=== PATIENT | male | born 1955 | race Two or more races ===

== ENCOUNTER → 2024-10-29 | Outpatient (CLI) | payer OTHER, SELFPAY ==
[2024-10-29 09:33] LABS: Basophils # (Auto) 0.1 Thou/mm3 (0.0-0.2); Basophils % (Auto) 1 % (0-2.5); Eosinophils # (Auto) 0.3 Thou/mm3 (0.0-0.5); Eosinophils % (Auto) 5 % (0-10); Hematocrit 35.4 % (41.0-53.0); Hemoglobin 11.6 g/dL (13.5-16.0); Immature Granulocytes % (Auto) 0 % (0-0); Immature Granulocytes Auto 0.01 Thou/mm3 (0.00-0.00); Lymphocytes # (Auto) 1.9 Thou/mm3 (1.0-4.8); Lymphocytes % (Auto) 31 % (10-50); Mean Corpuscular HGB Conc 32.8 g/dl (31.0-37.0); Mean Corpuscular Hemoglobin 29.4 pg (25.0-35.0); Mean Corpuscular Volume 90 fL (80-100); Monocytes # (Auto) 0.5 Thou/mm3 (0.0-0.8); Monocytes % (Auto) 8 % (0-12); Neutrophils # (Auto) 3.4 Thou/mm3 (1.8-7.7); Neutrophils % (Auto) 56 % (37-80); Nucleated Red Blood Cell % 0 /100 WBC (0); Platelet Count 297 Thou/mm3 (140-440); RDW Standard Deviation 49.5 fL (35.1-43.9); Red Blood Count 3.94 Miln/mm3 (4.50-5.90); White Blood Count 6.1 Thou/mm3 (3.8-10.6)
[2024-10-29 09:46] LABS: Glucose Estimated Average 108 mg/dL (80-131); Hemoglobin A1C 5.4 % Hgb (4.8-6.0)
[2024-10-29 09:54] LABS: Creatinine MALB Rnd Ur 157 mg/dL (30-125); Microalbumin Creat Ratio 38 mg/gCrea (<30); Microalbumin, Random Urine 60 mg/L (0-300)
[2024-10-29 10:10] LABS: Alanine Aminotransferase 15 U/L (10-49); Albumin, Serum 4.1 gm/dL (3.4-4.8); Alkaline Phosphatase 108 U/L (46-116); Anion Gap 7 (7-16); Aspartate Amino Transferase 17 U/L (0-34); BUN/Creatinine Ratio 31 Ratio (12-20); Bilirubin,Total 0.8 mg/dL (0.3-1.2); Blood Urea Nitrogen 31 mg/dL (9-23); Calcium 9.1 mg/dL (8.3-10.6); Calcium (Corrected) 9.1 mg/dL (8.5-10.1); Carbon Dioxide 28.1 mMol/L (20.0-31.0); Cardiac Risk Estimate 3.1 RATIO (4.0-6.7); Chloride 108 mMol/L (98-107); Cholesterol 126 mg/dL (132-200); Globulin 2.1 gm/dL (2.3-3.5); Glucose 70 mg/dL (74-106); HDL Cholesterol 41 mg/dL (40-60); LDL Cholesterol,Calculated 68 mg/dL (0-130); Osmolality,Calculated 289 (275-295); Potassium 4.5 mMol/L (3.4-5.1); Sodium 143 mMol/L (136-145); Total Protein 6.2 gm/dL (5.7-8.2); Triglycerides 85 mg/dL (30-150); eGFR > 60 See Note
== END | disposition home or self-care (01) ==
LOC: COPL 08:37
PROVIDERS: PCP Internal Medicine; Referring Provider Internal Medicine; Visit Provider Internal Medicine
DX: E11.65 Type 2 diabetes mellitus with hyperglycemia (principal); I10 Essential (primary) hypertension; E78.5 Hyperlipidemia, unspecified
CPT/HCPCS: 36415; 80053; 80061; 82043; 82570; 83036; 85025

== ENCOUNTER → 2024-11-24 | Outpatient (CLI) | payer OTHER, SELFPAY ==
--- NOTE | 2024-11-24 09:16 | XR_ITS ---
Examination: Left knee 4 views TECHNIQUE: AP oblique lateral axial left knee 4 views Exam date and time: November 24, 2024 at 0943 hours INDICATIONS: Left knee pain several years. FINDINGS: Prominent osteopenia Advanced tricompartment osteoarthritis No patellar dislocation No fracture IMPRESSION: Advanced tricompartment osteoarthritis
== END | disposition home or self-care (01) ==
PROVIDERS: PCP Internal Medicine; Referring Provider Internal Medicine; Visit Provider Internal Medicine
DX: M17.12 Unilateral primary osteoarthritis, left knee (principal)
CPT/HCPCS: 73564

== ENCOUNTER 2024-12-19 10:55 | Day surgery (SDC) | payer OTHER, SELFPAY ==
[2024-12-18 13:32] VITALS: BMI 45.1
[2024-12-19] VITALS (8 sets, daily range): BP systolic 148–179; BP diastolic 70–97; PULSE 64–77; RESP 12–18; TEMP 36.3–36.7; O2SAT 95–100; BMI 44.6
[2024-12-19] MEDS: SODIUM CHLORIDE 0.9% 500 ML 500 ML 20 ML IV (12:48)
[2024-12-19] MEDS: fentaNYL CIT INJ 50 mCg/ML AMP 2ML (ASD USE ONLY) IV (12:50)
[2024-12-19] MEDS: DiphenhydrAMINE INJ 50 MG/ML VIAL 25 MG IV (12:50)
[2024-12-19] MEDS: MIDAZOLAM INJ 1 MG/ML VIAL 2 ML (ASD USE ONLY) 2 MG IV (12:50)
== END 2024-12-19 13:40 | disposition home or self-care (01) ==
PROVIDERS: PCP Internal Medicine; Referring Provider Specialist; Visit Provider Specialist
PROC: (CPT 43239; principal; 2024-12-19 09:45)
DX: K29.01 Acute gastritis with bleeding (principal); K29.50 Unspecified chronic gastritis without bleeding; B96.81 Helicobacter pylori [H. pylori] as the cause of diseases classified elsewhere; D62 Acute posthemorrhagic anemia; K22.10 Ulcer of esophagus without bleeding; E11.9 Type 2 diabetes mellitus without complications; I10 Essential (primary) hypertension; E78.5 Hyperlipidemia, unspecified; Z87.19 Personal history of other diseases of the digestive system; Z79.84 Long term (current) use of oral hypoglycemic drugs; Z79.4 Long term (current) use of insulin; Z79.899 Other long term (current) drug therapy
CPT/HCPCS: 43239; A4649; J1200; J2250; J3010; J7040

== ENCOUNTER → 2025-01-30 | Outpatient (CLI) | payer OTHER, SELFPAY ==
[2025-01-30 08:45] LABS: Basophils # (Auto) 0.1 Thou/mm3 (0.0-0.2); Basophils % (Auto) 1 % (0-2.5); Eosinophils # (Auto) 0.3 Thou/mm3 (0.0-0.5); Eosinophils % (Auto) 5 % (0-10); Hematocrit 37.5 % (41.0-53.0); Hemoglobin 12.1 g/dL (13.5-16.0); Immature Granulocytes % (Auto) 0 % (0-0); Immature Granulocytes Auto 0.03 Thou/mm3 (0.00-0.00); Lymphocytes # (Auto) 2.1 Thou/mm3 (1.0-4.8); Lymphocytes % (Auto) 29 % (10-50); Mean Corpuscular HGB Conc 32.3 g/dl (31.0-37.0); Mean Corpuscular Hemoglobin 29.4 pg (25.0-35.0); Mean Corpuscular Volume 91 fL (80-100); Monocytes # (Auto) 0.6 Thou/mm3 (0.0-0.8); Monocytes % (Auto) 8 % (0-12); Neutrophils % (Auto) 57 % (37-80); Nucleated Red Blood Cell % 0 /100 WBC (0); Platelet Count 296 Thou/mm3 (140-440); RDW Standard Deviation 49.7 fL (35.1-43.9); Red Blood Count 4.11 Miln/mm3 (4.50-5.90); White Blood Count 7.1 Thou/mm3 (3.8-10.6)
[2025-01-30 09:05] LABS: Folate 6.24 ng/mL (>5.38); Vitamin B12 485 pg/mL (211-911)
[2025-01-30 09:08] LABS: Ferritin 33 ng/mL (10.5-307.3); Iron 55 mcg/dL (65-175); Percent Iron Saturation 16 % (20-55); Total Iron Binding Capacity 338 mcg/dL (250-425); Unsaturated Iron Binding 283 (225-295)
== END | disposition home or self-care (01) ==
LOC: COPL 08:05
PROVIDERS: PCP Internal Medicine; Referring Provider Internal Medicine; Visit Provider Internal Medicine
DX: D64.9 Anemia, unspecified (principal)
CPT/HCPCS: 36415; 82607; 82728; 82746; 83540; 83550; 85025

== ENCOUNTER 2025-03-10 03:04 | Emergency (ER) | payer OTHER, SELFPAY ==
[2025-03-10 03:08] VITALS: BMI 44.1
[2025-03-10 03:09] VITALS: BP 153/71; PULSE 90; RESP 19; TEMP 36.6; O2SAT 99
[2025-03-10 03:16] VITALS: BP 175/88; PULSE 80; O2SAT 96
[2025-03-10 03:18] VITALS: PULSE 90; RESP 19; O2SAT 100
[2025-03-10 04:00] LABS: Basophils # (Auto) 0.1 Thou/mm3 (0.0-0.2); Basophils % (Auto) 1 % (0-2.5); Eosinophils # (Auto) 0.1 Thou/mm3 (0.0-0.5); Eosinophils % (Auto) 1 % (0-10); Hematocrit 34.0 % (41.0-53.0); Hemoglobin 11.7 g/dL (13.5-16.0); Immature Granulocytes Auto 0.01 Thou/mm3 (0.00-0.00); Lymphocytes # (Auto) 1.7 Thou/mm3 (1.0-4.8); Lymphocytes % (Auto) 22 % (10-50); Mean Corpuscular HGB Conc 34.4 g/dl (31.0-37.0); Mean Corpuscular Hemoglobin 29.8 pg (25.0-35.0); Mean Corpuscular Volume 87 fL (80-100); Monocytes # (Auto) 0.6 Thou/mm3 (0.0-0.8); Monocytes % (Auto) 8 % (0-12); Neutrophils # (Auto) 5.3 Thou/mm3 (1.8-7.7); Neutrophils % (Auto) 68 % (37-80); Nucleated Red Blood Cell # 0.00 Thou/mm3 (0.00-0.00); Nucleated Red Blood Cell % 0 /100 WBC (0); Platelet Count 231 Thou/mm3 (140-440); RDW Standard Deviation 48.4 fL (35.1-43.9); Red Blood Count 3.92 Miln/mm3 (4.50-5.90); White Blood Count 7.9 Thou/mm3 (3.8-10.6)
--- NOTE | 2025-03-10 04:00 | PD.EDAMS ---
Altered Mental Status RME/HPI General Chief Complaint: Altered Mental Status Stated Complaint: AMS, LOW BS Time Seen by Provider: 03/10/25 03:06 Arrival date/time: 03/10/25 03:04 RME / HPI RME / HPI narrative: DR. HARO MAIN ED EVALUATION: 69 y/o male with Hx of Type II DM BIBA presents to ED c/o AMS s/p low blood sugar x just [employer]. Per EMS, upon arrival on scene, patient had snoring respirations with GCS 10. Blood sugar read 37 mg/dL. D10 administered via IV. Recheck BS read 117 with improved GCS of 15. Patient took his insulin despite not eating enough at dinner. Patient llastly recalls going to be at approximately 10 PM. Related Data Home Medications ?Medication ?Instructions ?Recorded ?Confirmed enalapril maleate 20 mg tablet 20 mg PO DAILY 11/16/23 12/19/24 gabapentin 300 mg capsule 300 mg PO QDAY 11/16/23 12/19/24 glipizide 10 mg tablet 10 mg PO QDAY 11/16/23 12/19/24 hydrochlorothiazide 25 mg tablet 25 mg PO QAM 11/16/23 12/19/24 insulin glargine 100 unit/mL (3 25 unit subcut QPM 11/16/23 12/19/24 mL) subcutaneous pen (Lantus Solostar U-100 Insulin) metformin 1,000 mg tablet 1,000 mg PO BID 11/16/23 12/19/24 pioglitazone 45 mg tablet 45 mg PO QDAY 11/16/23 12/19/24 pravastatin 10 mg tablet 10 mg PO HS 11/16/23 12/19/24 amlodipine 10 mg tablet 10 mg PO QDAY 05/26/24 12/19/24 Allergies Allergy/AdvReac Type Severity Reaction Status Date / Time No Known Allergies Allergy Verified 12/19/24 11:19 Review of Systems Review of Systems Systems Reviewed: All systems reviewed, normal except as documented Past Medical History Past Medical History NEUROLOGIC: Positive Neurological Disorders and Peripheral Neuropathy CARDIAC: Positive Cardiac Disorders, Hypercholesterolemia and Hypertension GASTROINTESTINAL: Positive Gastrointestinal Disorders, Diverticulosis, Hemorrhoids and Obesity MUSCULOSKELETAL: Positive Musculoskeletal Disorders and Arthritis (knee, back) ENDOCRINE: Positive Endocrine Disorders and Diabetes Mellitus Type 2 OTHER HISTORY: Positive Shingles and Chicken Pox Family History FAMILY HISTORY: Positive Family Gastrointestinal Problems Social History SMOKING STATUS: Former smoker ED Exam Narrative Physical exam: GENERAL APPEARANCE: alert and oriented x 4, well-developed, well-nourished, no acute distress VITALS: All vitals were reviewed and the pulse ox is 99% on room air, which is normal according to my interpretation. HEENT: Normocephalic, atraumatic; pupils equal, round, reactive to light; EOMI; mucous membranes pink, moist; oropharynx clear NECK: Supple LUNGS: CTABL; no wheezes, no rales, no rhonchi HEART: Regular rate, regular rhythm; normal S1, S2; no murmurs ABDOMEN: non distended; normal BS; soft, no tenderness, no guarding, no rebound; no masses, no organomegaly, no hernia BACK: no CVA tenderness EXTREMITIES: atraumatic; no edema NEUROLOGIC: awake; alert and oriented x4; cranial nerves II-XII grossly intact; no focal sensory or motor deficits PSYCHIATRIC: appropriate mood and affect SKIN: warm, dry, normal color; no rashes Course Quality Measures none Orders Category Date Time Status CBC Stat Lab 03/10/25 03:45 Completed CMP [Comprehensive Metabolic Panel] Stat Lab 03/10/25 03:45 Completed Vital Signs Vital signs: Vital Signs Temperature 97.8 F 03/10/25 03:09 Pulse Rate 90 03/10/25 03:09 Respiratory Rate 19 03/10/25 03:09 Blood Pressure 153/71 H 03/10/25 03:09 Pulse Oximetry (%) 99 03/10/25 03:09 Oxygen Delivery Method Room Air 03/10/25 03:09 Altered Mental Status MDM Narrative MDM Narrative:: Scribe Attestation: Kaci Cabral am scribing for and in the presence of Dr. Haro. Provider Notation: Although this document has been carefully reviewed, there may still be some phonetic and other typographical errors.? These errors are purely grammatical due to imperfections in the software program and should not be construed in any way to? compromise the substance of the patient's medical care during this visit. Patient data External records reviewed:: [facility] previous records (Reviewed prior ED records from 05/11/23. Patient was seen for Acute pain of left hip.) and EMS form Clinical information provided by:: EMS and spouse () Social determinants that could affect healthcare access:: none Patient has the following chronic illnesses:: Peripheral Neuropathy, Hypercholesterolemia, Hypertension, Diverticulosis, Hemorrhoids, Obesity, Arthritis, Diabetes Mellitus Type 2 How is presenting disease/condition affected by chronic disease/condition?: exacerbated by Evaluation data The following diagnostics were reviewed and interpreted by me:: lab results Lab and/or radiology exams considered but not ordered:: None Interpretation Summary: LABS Blood Glucose: 100 mg/dL. Medications / Prescriptions Medications or Prescriptions considered but not ordered:: None Medication administrations:: See above Consultations Consultation(s) initiated? (list below): No Diagnosis Differential diagnosis altered mental status: alcoholic intoxication, altered mental status, hypoglycemia, hyponatremia, subarachnoid hemorrhage and sepsis Most likely diagnosis given after review of the tests above:: Hypoglycemia Admission Indicated Admission indicated?: not indicated Explain why admission is indicated or not indicated:: Patient does not meet admission criteria. Admission Request Was there a request for admission?: No Disposition Plan Disposition Plan: Discharge Discharge Attestation Discharge Attestation: The patient and all family members were given an opportunity to ask questions and understood the discharge instructions. Discharge instructions specifically effects, indications for sooner follow up or return to the emergency department, and the expected course of current diagnosis. Patient condition: Stable Discharge Plan Plan Patient Disposition: HOME (Self Care) Prescriptions/Referrals Prescriptions/Med Rec: No Action enalapril maleate 20 mg Tablet 20 mg PO DAILY glipizide 10 mg Tablet 10 mg PO QDAY pioglitazone 45 mg Tablet 45 mg PO QDAY pravastatin 10 mg Tablet 10 mg PO HS metformin 1,000 mg Tablet 1,000 mg PO BID gabapentin 300 mg Capsule 300 mg PO QDAY hydrochlorothiazide 25 mg Tablet 25 mg PO QAM insulin glargine [Lantus Solostar U-100 Insulin] 100 unit/mL (3 mL) Insulin Pen 25 unit SUBCUT QPM amlodipine 10 mg tablet 10 mg PO QDAY Referrals: Sole You MD [Primary Care Provider] - In 1 week Problem List Clinical Impression: Hypoglycemia Patient/Caregiver Discharge Instructions Education Materials: Glucose Check Steps, ED Hypoglycemia Oral Diabetic ... Print Language: Italian Stand Alone Forms: [employer]a Award Info., Patient Portal Info Letter
[2025-03-10 04:17] LABS: Alanine Aminotransferase 17 U/L (10-49); Albumin, Serum 4.1 gm/dL (3.4-4.8); Albumin/Globulin Ratio 1.6 (1.2-2.2); Alkaline Phosphatase 91 U/L (46-116); Anion Gap 10 (7-16); Aspartate Amino Transferase 36 U/L (0-34); BUN/Creatinine Ratio 18 Ratio (12-20); Bilirubin,Total 0.8 mg/dL (0.3-1.2); Blood Urea Nitrogen 20 mg/dL (9-23); Calcium 8.8 mg/dL (8.3-10.6); Calcium (Corrected) 8.8 mg/dL (8.5-10.1); Carbon Dioxide 20.1 mMol/L (20.0-31.0); Chloride 108 mMol/L (98-107); Creatinine (Component) 1.1 mg/dL (0.6-1.3); Estimated Creatinine Clearance 75.1 mL/min (>60); Globulin 2.5 gm/dL (2.3-3.5); Glucose 100 mg/dL (74-106); Osmolality,Calculated 278 (275-295); Potassium 5.0 mMol/L (3.4-5.1); Sodium 138 mMol/L (136-145); Total Protein 6.6 gm/dL (5.7-8.2); eGFR > 60 See Note
[2025-03-10 05:37] VITALS: BP 150/69; PULSE 89; RESP 18; TEMP 36.7; O2SAT 97
[2025-03-10 07:06] VITALS: BP 125/60; PULSE 74; RESP 17; TEMP 37.1; O2SAT 97
--- NOTE | 2025-03-10 09:58 | PC.NURSE ---
PT DISCHARGED PRIOR TO ASSUMPTION OF CARE, WAITING ON TO BRING CLOTHES. PT HAS BEEN STABLE WHILE WAITING, HAS ARRIVED AND PT WAS TAKEN HOME.
== END 2025-03-10 10:01 | disposition home or self-care (01) ==
PROVIDERS: Emergency Provider Emergency Medicine; PCP Emergency Medicine
DX: E11.649 Type 2 diabetes mellitus with hypoglycemia without coma (principal); E16.A3 Hypoglycemia level 3; Z79.84 Long term (current) use of oral hypoglycemic drugs; Z79.4 Long term (current) use of insulin
CPT/HCPCS: 36415; 80053; 85025; 99283

== ENCOUNTER 2025-03-20 08:52 | Outpatient (AMB) | payer OTHER, SELFPAY ==
--- NOTE | 2025-03-20 09:11 | PD.ORTHCLVIS ---
Vital signs 03/20/25 09:15 Height 1.65 m Height Method Measured Weight 119.068 kg Weight Measurement Method Standing Scale BMI 43.7 BP 149/70 H Blood Pressure Source Automatic Cuff Blood Pressure Location Left Upper Arm Position Sitting Respiration 18 Pulse 84 Pulse Source Monitor Temp 97.0 F Temp Source Temporal Artery Scan Pulse Oximetry (%) 95 Oxygen Delivery Method Room Air Med/Allergies Allergies & Medications Allergies No Known Allergies Allergy (Verified 03/20/25 09:17) Medication Reconciliation enalapril maleate 20 mg tablet 20 mg PO DAILY 11/16/23 [History Confirmed 03/20/25] gabapentin 300 mg capsule 300 mg PO QDAY 11/16/23 [History Confirmed 03/20/25] glipizide 10 mg tablet 10 mg PO QDAY 11/16/23 [History Confirmed 03/20/25] hydrochlorothiazide 25 mg tablet 25 mg PO QAM 11/16/23 [History Confirmed 03/20/25] insulin glargine 100 unit/mL (3 mL) subcutaneous pen (Lantus Solostar U-100 Insulin) 25 unit subcut QPM 11/16/23 [History Confirmed 03/20/25] metformin 1,000 mg tablet 1,000 mg PO BID 11/16/23 [History Confirmed 03/20/25] pioglitazone 45 mg tablet 45 mg PO QDAY 11/16/23 [History Confirmed 03/20/25] pravastatin 10 mg tablet 10 mg PO HS 11/16/23 [History Confirmed 03/20/25] amlodipine 10 mg tablet 10 mg PO QDAY 05/26/24 [History Confirmed 03/20/25] Exam Exam Patient is in no acute distress and is cooperative with the examination today. Breathing is nonlabored. Patient has a normal mood and affect. Bilateral extremities were evaluated and demonstrates sensation intact to light touch. Palpable pedal pulses are present. No significant edema is present. Bilateral hips were examined. The patient has no pain with log roll of the hips. Internal rotation to 30 degrees and external rotation to 30 degrees is painless. Negative FADIR. Right knee was examined today. The right knee is in reasonable alignment. Range of motion from 0-120 degrees. Knee is stable to varus and valgus as well as AP translation with <5mm. Patient has a negative McMurrays. There is no pain with patellofemoral compression and no crepitus noted. The knee is nontender to palpation. Left knee was examined today. The left knee is in varus alignment. Range of motion from 0-115 degrees. Knee is stable to varus and valgus as well as AP translation with <5mm. Patient has a negative McMurrays. There is no pain with patellofemoral compression and no crepitus noted. The knee is tender to palpation medially. X-rays demonstrate complete joint space obliteration medially with varus deformity. Assessment and Plan Problem List (1) Pain in left knee: Status: Acute Plan: Patient is a pleasant 70-year-old male with left knee pain and left knee arthritis. We discussed different treatment options. We discussed weight loss. Detail. His current BMI is 45 and we he has a goal weight of 245 based on his height. He is already failed conservative treatment and we thus recommended weight loss. His diabetes is well-controlled. We will proceed with surgery if we can get him to lose a little bit more weight Advanced Care Planning Discussion Advance care planning discussed with:: patient Office Procedures GNS Level of Care Nursing/Assessment Patient Status: Established Patient Nursing Assessment/Reassesment: Medication Reconciliation, Update PMH in EMR and Vital Signs Coordination of Care: Complex Care and Chronic Disease 1-5, Education Complex Pt/Fam, Consent,records obtained, informed consent, Results/Orders obtained and Staff clarify orders Established Patient Charge Established Patient Point Assignment: 95 Established Patient Point Charge: EP Level 3 (80-115) MA Intake Visit Data Collection New Patient or Established: Established Patient (seen at [facility] within 3 years) Reason for Visit:: RIGHT KNEE PAIN Seen by Clinical Staff ONLY (RN/MA): No PCP or OBGYN visit in last 3 months: Yes Hx Now: No Do You Feel Safe at Home: Yes Authorities Contacted: N/A Questionairres Past Medical History Past Medical History Have you ever been diagnosed with any of the following: Neurological Problems Seizures: No Peripheral Neuropathy: Yes Cardiology Problems Hypercholesterolemia: Yes Congestive Heart Failure: No Hypertension: Yes Respiratory Problems Chronic Obstructive Pulmonary Disease (COPD): No Smoking: No Smoking Exposure: No Stomache/Intestinal Problems Hepatitis: No Diverticulosis: Yes Hemorrhoids: Yes Obesity: Yes Genital/Urinary Problems Renal Disease: No Musculoskeletal Problems Arthritis: Yes (knee, back) Head,Eye,Nose,Throat Problems Cataracts: Yes (left eye) Endocrine Problems Diabetes Mellitus Type 1: No Diabetes Mellitus Type 2: Yes Other Problems Hospitalization: No Shingles: Yes Blood Transfusions: No Blood Transfusion Reaction: No Anesthesia Reactions: No Chicken Pox: Yes Measles: No Cancer: No Subjective Visit Visit for: new patient and knee Immunization / Flu Flu Vaccine in the Last 12 Months: Yes Flu Vaccine Exclusion Criteria: Already Received History of Present Illness Chief complaint: Left knee pain Date of injury / onset of symptoms: 08/2019 Patient is a pleasant 70-year-old male with left knee pain that has been ongoing for several years. He has had 2 injections which no longer work. He has also had anti-inflammatories and physical therapy. The pain is affecting his quality life and happiness. His current BMI is 44 Pain Pain level (0-10): 6 Pain duration: COMES AND GOES Pain location: outside (lateral) and anterior Pain quality: sharp, dull and aching Pain timing: increases with activity Associated signs & symptoms: weakness Ambulatory data Ambulatory device: cane Treatments Number of previous injections: 2 Improvement with previous injections: No Number of Physical Therapy sessions: 10 Improvement with PT: No Improvement with NSAIDS: no Review of Systems Review of Systems: All systems negative unless otherwise noted in HPI.
[2025-03-20 09:15] VITALS: BP 149/70; PULSE 84; RESP 18; TEMP 36.1; O2SAT 95; BMI 43.7
== END 2025-03-20 09:32 | disposition home or self-care (01) ==
PROVIDERS: PCP Internal Medicine; Referring Provider Internal Medicine; Supervising Provider Orthopaedic Surgery Adult Reconstructive Orthopaedic Surgery; Visit Provider Orthopaedic Surgery Adult Reconstructive Orthopaedic Surgery
DX: M25.562 Pain in left knee (principal); M17.12 Unilateral primary osteoarthritis, left knee; E66.9 Obesity, unspecified; Z68.41 Body mass index [BMI] 40.0-44.9, adult; I10 Essential (primary) hypertension; E11.9 Type 2 diabetes mellitus without complications; E78.00 Pure hypercholesterolemia, unspecified
CPT/HCPCS: 99213; G0463

== ENCOUNTER → 2025-05-08 | Outpatient (CLI) | payer OTHER, SELFPAY ==
[2025-05-08 08:57] LABS: Urea Breath Test Negative (Negative)
== END | disposition home or self-care (01) ==
LOC: COPL 06:51
PROVIDERS: PCP Internal Medicine; Referring Provider Specialist; Visit Provider Specialist
DX: Z01.89 Encounter for other specified special examinations (principal); B96.81 Helicobacter pylori [H. pylori] as the cause of diseases classified elsewhere
CPT/HCPCS: 83013; 83014

== ENCOUNTER → 2025-05-22 | Outpatient (CLI) | payer OTHER, SELFPAY ==
[2025-05-22 08:44] LABS: Basophils # (Auto) 0.1 Thou/mm3 (0.0-0.2); Basophils % (Auto) 1 % (0-2.5); Eosinophils # (Auto) 0.3 Thou/mm3 (0.0-0.5); Eosinophils % (Auto) 5 % (0-10); Hematocrit 36.3 % (41.0-53.0); Hemoglobin 12.0 g/dL (13.5-16.0); Immature Granulocytes Auto 0.01 Thou/mm3 (0.00-0.00); Lymphocytes # (Auto) 2.3 Thou/mm3 (1.0-4.8); Lymphocytes % (Auto) 37 % (10-50); Mean Corpuscular HGB Conc 33.1 g/dl (31.0-37.0); Mean Corpuscular Hemoglobin 30.4 pg (25.0-35.0); Mean Corpuscular Volume 92 fL (80-100); Monocytes # (Auto) 0.5 Thou/mm3 (0.0-0.8); Monocytes % (Auto) 8 % (0-12); Neutrophils # (Auto) 3.1 Thou/mm3 (1.8-7.7); Neutrophils % (Auto) 50 % (37-80); Nucleated Red Blood Cell # 0.00 Thou/mm3 (0.00-0.00); Nucleated Red Blood Cell % 0 /100 WBC (0); Platelet Count 287 Thou/mm3 (140-440); RDW Standard Deviation 53.1 fL (35.1-43.9); Red Blood Count 3.95 Miln/mm3 (4.50-5.90); White Blood Count 6.2 Thou/mm3 (3.8-10.6)
[2025-05-22 08:46] LABS: Glucose Estimated Average 128 mg/dL (80-131); Hemoglobin A1C 6.1 % Hgb (4.8-6.0)
[2025-05-22 08:58] LABS: Creatinine MALB Rnd Ur 160 mg/dL (30-125); Microalbumin Creat Ratio 9 mg/gCrea (<30); Microalbumin, Random Urine 15 mg/L (0-300)
[2025-05-22 08:58] LABS: Alanine Aminotransferase 16 U/L (10-49); Albumin, Serum 4.2 gm/dL (3.4-4.8); Albumin/Globulin Ratio 1.8 (1.2-2.2); Alkaline Phosphatase 125 U/L (46-116); Anion Gap 11 (7-16); Aspartate Amino Transferase 19 U/L (0-34); BUN/Creatinine Ratio 30 Ratio (12-20); Bilirubin,Total 0.7 mg/dL (0.3-1.2); Blood Urea Nitrogen 33 mg/dL (9-23); Calcium 9.5 mg/dL (8.3-10.6); Calcium (Corrected) 9.5 mg/dL (8.5-10.1); Carbon Dioxide 23.6 mMol/L (20.0-31.0); Cardiac Risk Estimate 3.9 RATIO (4.0-6.7); Chloride 107 mMol/L (98-107); Cholesterol 149 mg/dL (132-200); Creatinine (Component) 1.1 mg/dL (0.6-1.3); Globulin 2.3 gm/dL (2.3-3.5); Glucose 118 mg/dL (74-106); HDL Cholesterol 38 mg/dL (40-60); LDL Cholesterol,Calculated 85 mg/dL (0-130); Osmolality,Calculated 291 (275-295); Potassium 4.4 mMol/L (3.4-5.1); Sodium 142 mMol/L (136-145); Total Protein 6.5 gm/dL (5.7-8.2); Triglycerides 128 mg/dL (30-150); eGFR > 60 See Note
== END | disposition home or self-care (01) ==
LOC: COPL 07:30
PROVIDERS: PCP Internal Medicine; Referring Provider Internal Medicine; Visit Provider Internal Medicine
DX: E11.65 Type 2 diabetes mellitus with hyperglycemia (principal); E78.5 Hyperlipidemia, unspecified; I10 Essential (primary) hypertension
CPT/HCPCS: 36415; 80053; 80061; 82043; 82570; 83036; 85025

== ENCOUNTER 2025-06-18 07:55 | Outpatient (AMB) | payer OTHER, SELFPAY ==
[2025-06-18 08:26] VITALS: BP 114/77; PULSE 69; RESP 19; TEMP 36.4; O2SAT 93; BMI 42.1
--- NOTE | 2025-06-18 08:26 | PD.ORTHCLVIS ---
Vital signs 06/18/25 08:26 Height 1.65 m Height Method Stated Weight 114.929 kg Weight Measurement Method Standing Scale BMI 42.1 BP 114/77 Blood Pressure Source Automatic Cuff Blood Pressure Location Left Upper Arm Position Sitting Respiration 19 Pulse 69 Pulse Source Monitor Temp 97.6 F Temp Source Temporal Artery Scan Pulse Oximetry (%) 93 L Oxygen Delivery Method Room Air Med/Allergies Allergies & Medications Allergies No Known Allergies Allergy (Verified 06/18/25 08:31) Medication Reconciliation enalapril maleate 20 mg tablet 20 mg PO DAILY 11/16/23 [History Confirmed 06/18/25] gabapentin 300 mg capsule 300 mg PO QDAY 11/16/23 [History Confirmed 06/18/25] glipizide 10 mg tablet 10 mg PO QDAY 11/16/23 [History Confirmed 06/18/25] hydrochlorothiazide 25 mg tablet 25 mg PO QAM 11/16/23 [History Confirmed 06/18/25] insulin glargine 100 unit/mL (3 mL) subcutaneous pen (Lantus Solostar U-100 Insulin) 25 unit subcut QPM 11/16/23 [History Confirmed 06/18/25] metformin 1,000 mg tablet 1,000 mg PO BID 11/16/23 [History Confirmed 06/18/25] pioglitazone 45 mg tablet 45 mg PO QDAY 11/16/23 [History Confirmed 06/18/25] pravastatin 10 mg tablet 10 mg PO HS 11/16/23 [History Confirmed 06/18/25] amlodipine 10 mg tablet 10 mg PO QDAY 05/26/24 [History Confirmed 06/18/25] Exam Exam Patient is in no acute distress and is cooperative with the examination today. Breathing is nonlabored. Patient has a normal mood and affect. Bilateral extremities were evaluated and demonstrates sensation intact to light touch. Palpable pedal pulses are present. No significant edema is present. Bilateral hips were examined. The patient has no pain with log roll of the hips. Internal rotation to 30 degrees and external rotation to 30 degrees is painless. Negative FADIR. Right knee was examined today. The right knee is in reasonable alignment. Range of motion from 0-120 degrees. Knee is stable to varus and valgus as well as AP translation with <5mm. Patient has a negative McMurrays. There is no pain with patellofemoral compression and no crepitus noted. The knee is nontender to palpation. Left knee was examined today. The left knee is in varus alignment. Range of motion from 0-115 degrees. Knee is stable to varus and valgus as well as AP translation with <5mm. Patient has a negative McMurrays. There is no pain with patellofemoral compression and no crepitus noted. The knee is tender to palpation medially. X-rays demonstrate complete joint space obliteration medially with varus deformity. Assessment and Plan Problem List (1) Pain in left knee: Status: Acute Plan: ASSESSMENT AND PLAN 1. Diabetes Mellitus: he has been taken off all her diabetes medications, including insulin and metformin, by her primary doctor. She has started Ozempic and has given herself 2 injections so far. Her blood sugar levels have been fluctuating, with readings as high as 230 and 262. Her hemoglobin A1c was 6.1 two months ago, up from 5.1 in 07/2024. The goal is to achieve a hemoglobin A1c of less than 8 before considering surgical interventions. Continue with Ozempic and monitor blood sugar levels closely. Consult the primary doctor regarding potential adjustments in the medication regimen. Discuss the possibility of adding a nighttime medication to help stabilize blood sugar levels. Maintain regular follow-ups with the primary doctor to ensure optimal diabetes management. 2. Knee Pain: he is experiencing knee pain, with the left side being worse. Weight loss is recommended to help alleviate the knee pain. Once her weight stabilizes and her blood sugar is controlled, she will be considered for knee surgery. The procedure will take about an hour, and most patients go home the same day. Stay in touch and follow up in 3 months to ensure everything is on track. Maintain weight loss efforts to support knee health. Plan for knee surgery once blood sugar levels and weight are stable. Follow-up: Follow up in 3 months. Advanced Care Planning Discussion Advance care planning discussed with:: patient Office Procedures GNS Level of Care Nursing/Assessment Patient Status: Established Patient Nursing Assessment/Reassesment: Medication Reconciliation, Update PMH in EMR and Vital Signs Coordination of Care: Complex Care and Chronic Disease 1-5, Education Complex Pt/Fam, Consent,records obtained, informed consent, Results/Orders obtained and Staff clarify orders Established Patient Charge Established Patient Point Assignment: 95 Established Patient Point Charge: EP Level 3 (80-115) MA Intake Visit Data Collection New Patient or Established: Established Patient (seen at [facility] within 3 years) Reason for Visit:: RIGHT KNEE PAIN Seen by Clinical Staff ONLY (RN/MA): No PCP or OBGYN visit in last 3 months: Yes Hx Now: No Do You Feel Safe at Home: Yes Authorities Contacted: N/A Questionairres Past Medical History Past Medical History Have you ever been diagnosed with any of the following: Neurological Problems Seizures: No Peripheral Neuropathy: Yes Cardiology Problems Hypercholesterolemia: Yes Congestive Heart Failure: No Hypertension: Yes Respiratory Problems Chronic Obstructive Pulmonary Disease (COPD): No Smoking: No Smoking Exposure: No Stomache/Intestinal Problems Hepatitis: No Diverticulosis: Yes Hemorrhoids: Yes Obesity: Yes Genital/Urinary Problems Renal Disease: No Musculoskeletal Problems Arthritis: Yes (knee, back) Head,Eye,Nose,Throat Problems Cataracts: Yes (left eye) Endocrine Problems Diabetes Mellitus Type 1: No Diabetes Mellitus Type 2: Yes Other Problems Hospitalization: No Shingles: Yes Blood Transfusions: No Blood Transfusion Reaction: No Anesthesia Reactions: No Chicken Pox: Yes Measles: No Cancer: No Subjective Visit Visit for: follow up visit and knee (LEFT) Immunization / Flu Flu Vaccine in the Last 12 Months: Yes Flu Vaccine Exclusion Criteria: Already Received History of Present Illness Chief complaint: Left knee pain Date of injury / onset of symptoms: 08/2019 HISTORY OF PRESENT ILLNESS I, Tj Melendez, have obtained verbal consent from the patient, to be recorded during this encounter which may include, but not limited to, medical history, examination, treatment plans, and relevant health information.? Patient was informed that recording will be read and reviewed by myself before inclusion in the medical chart. Patient is a pleasant 71-year-old male with left knee pain that has been ongoing for several years. He has had 2 injections which no longer work. He has also had anti-inflammatories and physical therapy. The pain is affecting his quality life and happiness. His current BMI is 42 The patient presents for evaluation of her knee pain and diabetes. He has has been experiencing weight loss, which she attributes to the initiation of Ozempic treatment. She has administered 2 injections so far and reports that the medication appears to be effective. His physician has discontinued all her previous diabetes medications, including insulin and metformin. However, she has noticed fluctuations in her blood sugar levels, with readings as high as 230 before dinner and 262 after a small evening meal. These elevated levels are a new development since she stopped using insulin. His hemoglobin A1c was recorded as 5.1 last year and 6.1 two months ago, leading to the discontinuation of her previous medications. She has an upcoming appointment with her doctor in a few weeks to discuss her blood sugar levels. She is also considering surgery for her left knee, which is more problematic than the right. She is curious about the duration of the surgical procedure and expresses a preference for avoiding hospitalization. Personal History Occupation: RETIRED Pain Pain level (0-10): 6 Pain duration: WITH MOVEMENT Pain location: outside (lateral) and anterior Pain quality: sharp, dull and aching Pain timing: increases with activity and stairs Associated signs & symptoms: weakness Ambulatory data Ambulatory device: cane Treatments Number of previous injections: 2 Improvement with previous injections: No Number of Physical Therapy sessions: 10 Improvement with PT: No Improvement with NSAIDS: no Review of Systems Review of Systems: All systems negative unless otherwise noted in HPI.
== END 2025-06-18 08:57 | disposition home or self-care (01) ==
LOC: HODSRG 07:55
PROVIDERS: PCP Internal Medicine; Referring Provider Internal Medicine; Supervising Provider Orthopaedic Surgery Adult Reconstructive Orthopaedic Surgery; Visit Provider Orthopaedic Surgery Adult Reconstructive Orthopaedic Surgery
DX: M25.562 Pain in left knee (principal); E11.9 Type 2 diabetes mellitus without complications; I10 Essential (primary) hypertension; E66.9 Obesity, unspecified; Z68.41 Body mass index [BMI] 40.0-44.9, adult
CPT/HCPCS: 99213; G0463